=== PATIENT | male | born 1950 | race African-American/Black ===

== ENCOUNTER → 2018-10-15 | Outpatient (CLI) | payer OTHER, BC ==
[~2018-10-15] VITALS: Ht 177.8 cm; Wt 106.1 kg
[~2018-10-15] MED LIST: FLOMAX0.4 MG PO; LIPITOR10 MG PO; ZIAC 10-6.25 M1 EACH PO
--- NOTE | ~2018-10-15 | HPC ---
[facility] [place] [address] PAIN MANAGEMENT CONSULTATION Name: AGUSTIN COULTER Gianluca Room #: REG HALIMA Vernell#: [id number] Admission: 10/15/18 Attend Phys: Jaskaran Soliman DO Discharge: Date of : 46 Report #: [id number] THIS REPORT FOR: //name// [facility] DATE OF SERVICE: 10/15/2018 REFERRING PHYSICIAN: Dr. Khang Gaviria. CHIEF COMPLAINT: Low back pain. HISTORY OF PRESENT ILLNESS: As you know, the patient is a very pleasant 68-year-old male who has been referred to our service by his neurosurgeon, Dr. Khang Gaviria for evaluation for spinal cord stimulator trial implantation. The patient reports history of back pain that has been present since 1970. The patient indicates no specific injury or trauma since 1970 that may have led to symptom progression. He has had slow and progressive symptoms that have progressed over an extended period of time. He has trialed conservative medication management. He has even undergone adjunctive treatments such as epidural injections and other options for pain control. Unfortunately, these were all ineffective. The patient was subsequently seen by Neurosurgery who advised the patient options would include surgical decompression or possibility of undergoing a spinal cord stimulator treatment to determine if his symptoms might be amenable. The patient chose to discuss spinal cord stimulator treatment further. He was subsequently referred to our clinic to discuss this option. The patient indicates pain is continuous and periodic when describing his pattern of pain. He describes the pain is burning, shooting, aching, stabbing, sharp, throbbing, numbness and tingling. Places his current pain score 2-3/10, daily average of 2-5/10, worst pain has been 10/10. The patient states pain is exacerbated with prolonged standing, prolonged sitting, improves with cognitive behavioral therapy and distraction techniques. He has been referred to our service to discuss treatment options for suspected lumbar radiculopathy. PAST MEDICAL HISTORY: 1. Hypertension. 2. Degenerative joint disease. 3. Osteoarthritis. 4. Dyslipidemia. 5. Benign prostatic hypertrophy. PAST SURGICAL HISTORY: 1. Lumbar nerve radiofrequency ablation. [facility] [address] [place] [address] PAIN MANAGEMENT CONSULTATION Name: AGUSTIN COULTER Gianluca Room #: REG [facility] Vernell#: [id number] Admission: 10/15/18 Attend Phys: Jaskaran Soliman DO Discharge: Date of : 46 Report #: [id number] 2. Vasectomy. 3. Lumpectomy. 4. Right and left herniorrhaphy. 5. Urinary transposition. 6. Colonoscopies. SOCIAL HISTORY: The patient denies tobacco, IV or illicit drug use. He uses an occasional alcohol beverage. He is retired, retiring years ago. He is not receiving workmen's compensation or is he trying to obtain disability benefits. He is not in litigation in regards to pain. REVIEW OF SYSTEMS: Positive for wearing corrective eyewear, glaucoma with cataracts, frequent urination, nocturia, change of force or stream of urination, incontinence and dribbling to urine, history of kidney stones, rash and itching, low back pain, lower extremity pain with paresthesias. All other review of systems negative per 12-point review of systems other than those listed in history of present illness. Pain impact score 22/70 indicating [id number]-[id number] interference of daily activities secondary to pain. ALLERGIES: No reported drug allergies. CURRENT MEDICATIONS: Tamsulosin 0.4 mg once a day, atorvastatin 10 mg per day, Ziac 10/6.25 mg once a day. IMAGING: MRI of the lumbar spine shows severe degenerative changes throughout the lumbar region, normal diameter of the lumbar spinal canal neural foramen. PQRS: The patient has osteoarthritic changes of the low back, bilateral hips and knees. No rheumatoid arthritis. He is placing pain intensity 2-3/10. He is not a fall risk, has not had a fall in the last 3 months. He is not on blood thinners. He has history of hypertension. He is not on any long-term opiates, has a low opioid addiction potential. Pain impact score 22/70, [id number] interference of daily activities secondary to pain. PHYSICAL EXAMINATION: VITAL SIGNS: Blood pressure 176/85, pulse is 70, respiratory rate 20 and unlabored. The patient is 100% on room air. Height 5 feet 10 inches tall, weight 234 pounds, BMI calculated 33.6. GENERAL: Well-developed, well-nourished, well-hydrated, exogenously obese 68-year-old male appearing stated age, placing current pain score at 2-3/10. HEENT: Normocephalic, atraumatic. Pupils equal, round, reactive to light. Extraocular muscles are intact. Sclerae nonicteric without injection. NEUROLOGIC: Cranial nerves 2 through 12 grossly intact. Speech is fluent. The patient deemed a good historian. [facility] [address] [place] [address] PAIN MANAGEMENT CONSULTATION Name: AGUSTIN COULTER Room #: REG [facility]#: [id number] Admission: 10/15/18 Attend Phys: Jaskaran Soliman DO Discharge: Date of : 46 Report #: [id number] LUNGS: Clear. No wheeze, rhonchi or rales. CARDIOVASCULAR: Regular. No appreciable gallop, no rub. ABDOMEN: Soft, nontender, nondistended, mildly obese, normoactive bowel sounds. EXTREMITIES: Show no clubbing, no cyanosis, no edema. MUSCULOSKELETAL: Seated straight leg raising negative. Supine straight leg raising is mildly positive on the left. Ankle clonus negative. Babinski is negative. Deep tendon reflexes are 2+/4 at patella and Achilles. Ankle clonus negative. Gait mildly antalgic favoring left lower extremity over right. Lumbar provocation testing is met with increasing pain, mainly with extension and rotation. ASSESSMENT: 1. Symptomatic lumbar radiculopathy. 2. Displacement of lumbar intervertebral disk with radiculopathy. 3. Lumbosacral spondylosis with radiculopathy. 4. Chronic intractable pain. PLAN: 1. The patient has been referred to our service by Dr. Khang Gaviria, his neurosurgeon to be evaluated for a spinal cord stimulator therapy. I do feel that based on physical exam, history he provides, and the distribution of symptoms, he would be an excellent candidate for lumbar spinal cord stimulator trial. The patient and I discussed at length the requirements that he would have to undergo as well as the requirements that we have to undergo to begin the process of approvals. The patient is amenable and does wish to begin the process. 2. The patient will be sent for psychiatric evaluation. The patient will complete his psychiatric evaluation as part of Medicare guidelines to undergo process of approval for spinal cord stimulator. The patient was given the names of multiple psychiatrists who do the specific testing. Once he has completed this testing, he will contact our clinic. We will then review the findings. If they are appropriate, then we will move forward with planning the trial implant. 3. No medication changes made at today's visit. The patient will continue current medical therapy as previously prescribed. 4. The patient reported that he may have further questions even after his psychiatric evaluation. I have made myself available to see the patient back in followup visit to discuss those questions further, also to discussing questions his may have in regards to device itself. We spent over 38 minutes of time today reviewing the device itself and how it might be beneficial. 5. We wish to thank Dr. Gaviria for the referral of the patient to our clinic. We will keep you apprised of his response to treatment as we move forward with treatment with spinal cord stimulator. We [place] [address] PAIN MANAGEMENT CONSULTATION Name: AGUSTIN COULTER Room #: REG HALIMA Matt#: [id number] Admission: 10/15/18 Attend Phys: Jaskaran Soliman DO Discharge: Date of : 46 Report #: [id number] capable hands to undergo permanent implant assuming he has a good and profound improvement with the spinal cord stimulator trial. We will keep you apprised. By: [id number] Jaskaran Soliman, /nt
[2018-10-15 10:05] VITALS: BP 176/85
--- NOTE | 2018-10-15 10:37 | NUR ---
Pain Clinic Assessment: 1. History of Osteoarthritis: Not Applicable History of Rheumatoid Arthritis: Not Applicable 2. Height: 5 ft. 10 in. 177.8 cm. Weight: 234.0 lb. oz. 106.142 kg. Patient's BMI: 33.6 3. Vital Signs: BP: 176/85 Pulse: 70 Resp: 20 Temp: 02 Sat: 100 ECG Mon: 4. Pain Intensity: 2-3 5. Fall Risk: Dizziness: N Needs help standing or walking: N Fallen in the last 3 months: N Fall risk comments: 6. Patient on Blood Thinner: None 7. History of Hypertension: Y 8. Opioid Therapy greater than 6 weeks: N Opiate Contract Signed: 9. Risk Assessment Tool Provided: 10. Functional Assessment Tool: 11. Recreational Drug Use: Never Drug Type: Tobacco Use: Never Smoker Tobacco Type: Amount or Packs/day: How Many Years: Alcohol Use: Yes Frequency: Weekly Quant: 4-5
== END ==
LOC: PAIN 07:13
DX: M47.26 Other spondylosis with radiculopathy, lumbar region (principal); G89.4 Chronic pain syndrome; I10 Essential (primary) hypertension; M19.90 Unspecified osteoarthritis, unspecified site; E78.5 Hyperlipidemia, unspecified; N40.0 Benign prostatic hyperplasia without lower urinary tract symptoms